=== PATIENT | male | born 1960 | race Hispanic/Latino ===

== ENCOUNTER 2016-11-18 07:52 | Outpatient (CLI) | payer MEDICARE ==
--- NOTE | 2016-11-18 13:31 | Fluoroscopy Report ---
BARIUM SWALLOW: History: Dysphagia. The patient swallows barium without difficulty demonstrating normal coordination. The cervical and thoracic portions of the esophagus demonstrate normal contours. There is no evidence of a hiatus hernia and no reflux is demonstrated. Occasional episodes of mild esophageal spasm was witnessed in the distal esophagus. The patient was able to ingest the barium tablet without difficulty. IMPRESSION: Mild esophageal dysmotility is suspected. This could represent a mild esophagitis. No evidence for mass or mucosal irregularity.
== END 2016-11-18 07:53 | disposition home or self-care (01) ==
LOC: FLUORO 07:52
PROVIDERS: ATTEND Internal Medicine Hematology
DX: R13.10 Dysphagia, unspecified (principal)
CPT/HCPCS: 74220